=== PATIENT | male | born 1950 | race Caucasian/White ===

== ENCOUNTER 2017-04-21 19:24 | Inpatient (IN) | payer OTHER ==
[~2017-04-21] VITALS: Ht 172.7 cm; Wt 65.8 kg
[2017-04-21 19:24] VITALS: BP 128/66; PULSE 87; RESP 18; TEMP 99.1; O2SAT 100
--- NOTE | 2017-04-21 19:24 | NUR ---
Patient to ER bed 3 to gown for evaluation. Side rails up. Report given to Evan NEGRON.
--- NOTE | 2017-04-21 19:25 | NUR ---
Patient arrived to ED via BLS with c/o R sided nephrostomy tube dislodgement. Upon assessment tubing has become completely dislodged from site. Dressing still intact. No redness, swelling or drainage noted to site. Patient denies pain. No N/V/D. Denies fever. No other complaints at this time. Will continue to monitor.
--- NOTE | 2017-04-21 20:00 | NUR ---
Domenic villela in [facility] - 04/22/17 at 0140 by [email or web address] ED MD Peak at bedside for medical evaluation.
--- NOTE | 2017-04-21 20:00 | NUR ---
ED Peek at bedside with patient for reassessment.
[2017-04-21] MEDS ORDERED: TYLL650 PO (20:11)
[2017-04-21] MEDS ORDERED: LORA1TAB PO (20:24)
[2017-04-21] MEDS ORDERED: FERR-57 PO (20:24)
[2017-04-21] MEDS ORDERED: ACET-1010 PO (20:24)
[2017-04-21] MEDS ORDERED: CARB200T PO (20:24)
[2017-04-21] MEDS ORDERED: LOSA25TA3 PO (20:24)
[2017-04-21] MEDS ORDERED: ATEN50TA PO (20:24)
[2017-04-21] MEDS ORDERED: NOR10 PO (20:24)
[2017-04-21] MEDS ORDERED: SODI1TAB3 PO (20:24)
[2017-04-21] MEDS ORDERED: NA P133E41 RC (20:24)
[2017-04-21] MEDS ORDERED: MAGN400O4 PO (20:24)
[2017-04-21] MEDS ORDERED: TAMS0.4C96 PO (20:24)
[2017-04-21] MEDS ORDERED: BISA10SU65 RC (20:24)
[2017-04-21] MEDS ORDERED: PRED5TAB PO (20:24)
--- NOTE | 2017-04-21 20:30 | NUR ---
Patient offered bedside urinal per request. Unable to obtain any urine output at this time.
[2017-04-21 20:53] LABS: BASOPHILS % (AUTO) 0.2 % (0.0-2.0); EOSINOPHILS % (AUTO) 0.4 % (0.0-4.0); LYMPHOCYTES # (AUTO) 1.2 K/uL (1.0-5.5); LYMPHOCYTES % (AUTO) 19.8 % (20.5-51.5); MEAN CORPUSCULAR HEMOGLOBIN 26 pg (27-31); MEAN CORPUSCULAR HGB CONC 31 % (32-36); MEAN CORPUSCULAR VOLUME 84 fL (79.0-98.0); MONOCYTES # (AUTO) 0.4 K/uL (0.0-1.0); MONOCYTES % (AUTO) 6.6 % (1.7-9.3); NEUTROPHILS # (AUTO) 4.2 K/uL (1.8-7.7); PLATELET COUNT (AUTO) 551 K/uL (130-430); RED BLOOD CELL COUNT(AUTO) 2.74 MIL/uL (4.2-6.2); WHITE BLOOD COUNT (AUTO) 5.8 K/uL (4.8-10.8)
--- NOTE | 2017-04-21 21:00 | NUR ---
Laboratory at bedside.
[2017-04-21 21:02] LABS: CALCIUM 8.2 mg/dL (8.4-11.0); CREATININE 1.33 mg/dL (0.55-1.30); POTASSIUM 4.4 mmol/L (3.5-5.1)
[2017-04-21 21:04] LABS: HEMATOCRIT 23.1 % (36-54); HEMOGLOBIN 7.2 g/dL (14.0-18.0)
[2017-04-21 21:05] LABS: INR 1.1 (0.80-1.20); PROTHROMBIN TIME 12.3 SECS (9.5-12.5)
[2017-04-21 21:07] LABS: ALBUMIN 2.1 g/dL (3.4-4.8); TOTAL BILIRUBIN 0.2 mg/dL (0.0-1.0); TOTAL PROTEIN, SERUM 7.3 g/dL (6.4-8.3)
[2017-04-21 21:16] LABS: BILIRUBIN,URINE NEGATIVE (NEGATIVE); BLOOD, URINE 1+ (NEGATIVE); CLARITY/URINE CLOUDY (CLEAR); COLOR,URINE YELLOW (YELLOW); GLUCOSE,URINE NEGATIVE (NEGATIVE); KETONES,URINE NEGATIVE (NEGATIVE); LEUKOCYTE ESTERASE ,URINE 3+ (NEGATIVE); NITRITE, URINE NEGATIVE (NEGATIVE); PH,URINE 6.5 (5.0-8.0); PROTEIN URINE 2+ (NEGATIVE)
[2017-04-21 21:25] LABS: BACTERIA,URINE MANY /HPF (None Seen); WBC,URINE 50-80 /HPF (0-3)
[2017-04-21 21:26] LABS: COARSE GRANULAR CASTS,URINE 0-10 /LPF (None Seen); MUCUS,URINE None Seen /LPF (None Seen); URINE AMORPHOUS URATE 3+ /HPF (None Seen)
--- NOTE | 2017-04-21 21:30 | NUR ---
Patient resting quietly. No acute distress noted. Vital signs within normal range.
[2017-04-21] MEDS ORDERED: cefTRIAXone 1 GM IVPB PREMIX 50 ML IV ONE (21:45)
--- NOTE | 2017-04-21 22:10 | NUR ---
Patient will be admitted to care of Dr. Fernandez. Admitted to med/surg unit. Will go to room 135. Belongings list completed. Summary report printed. Report will be given at bedside. IV present no sign or symptom of infiltration.
--- NOTE | 2017-04-21 22:25 | NUR ---
ADMIT NOTE Received pt from ER to the floor with a diagnosis of UTI. Admission process initiated. patient oriented to pain management, safety and call light-teach back done.
[2017-04-21 22:29] VITALS: BP 115/65; PULSE 82; RESP 18; TEMP 98; O2SAT 100
--- NOTE | 2017-04-21 22:31 | NUR ---
Domenic villela in [facility] - 04/21/17 at 2232 by [email or web address] CONSULT CALLED EXCHANGE FOR DOCTOR LEORA CASTILLO-- SURGERY SPOKE WITH -- PIPER
--- NOTE | 2017-04-21 22:45 | NUR ---
NOTES: report given by nurse Ana Laura, pt. awake,alert , Wolof speaking pt. oriented to room, use of call light with POULTRY PROCESSING SUPERVISOR Brandi interpreting. denies any pain at this time. rt. nephrostomy tube out when checked., left nephrostomy tube still in place with dressing. picture taken on rt. nephrostomy tube site with small opening and also took on both lower extremities with some abrasion. skin on back pretty clear. IV lock on rt. antecubital. pt. being admitted for UTI. repositioned pt. and kept warm and comfortable.call light within reach.
[2017-04-21] MEDS ORDERED: MAGNESIUM SULFATE 50 ML IV PRN (23:00)
[2017-04-21] MEDS ORDERED: NACL 0.9% 1,000 ML IV SCH (23:00)
[2017-04-21] MEDS ORDERED: ZOLPIDEM TARTRATE 5 MG TABLET PO PRN (23:00)
[2017-04-21] MEDS ORDERED: POTASSIUM CHLORIDE 10 MEQ TAB.PRT.SR PO PRN (23:00)
[2017-04-21] MEDS ORDERED: ACETAMINOPHEN 325 MG TABLET PO PRN (23:00)
[2017-04-21] MEDS ORDERED: LORazepam 2 MG/ML VIAL IVP PRN (23:00)
[2017-04-21] MEDS ORDERED: ONDANSETRON HCL 4 MG/2 ML VIAL IVP PRN (23:00)
[2017-04-21] MEDS ORDERED: MILK OF MAGNESIA 30 ML UDC PO PRN (23:00)
[2017-04-21] MEDS ORDERED: DOCUSATE SODIUM 100 MG CAPSULE PO PRN (23:00)
[2017-04-21] MEDS ORDERED: ACETAMINOPHEN 500 MG TABLET PO PRN (23:00)
[2017-04-21] MEDS ORDERED: MORPHINE 2 MG/ML INJ. SYRINGE IVP PRN (23:00)
--- NOTE | 2017-04-21 23:34 | NUR ---
CONSULTATION PAGED REASON FOR CONSULTATION:nephrostomy tube malfunction WAS CONSULT CALLED?yes PERSON WHO WAS NOTIFIED:ulises CONSULTING PHYSICIAN: mirtha leyva HOME PLANNING CONSULTANT SALESPERSON SPECIALTY:urology HOME PLANNING CONSULTANT SALESPERSON PHONE NUMBER:[phone]
[2017-04-21 23:38] LABS: IRON (SERUM) 39 mcg/dL (59-158); TOTAL IRON BIND. CAPACITY 112 ug/dL (250-450)
[2017-04-22] VITALS (19 sets, daily range): BP systolic 52–131; BP diastolic 22–71; PULSE 71–108; RESP 15–30; TEMP 96.6–98.8; O2SAT 97–100
--- NOTE | 2017-04-22 00:30 | NUR ---
NOTES; pt. sleeping when made rounds. in no acute distress. continue to monitor.
--- NOTE | 2017-04-22 01:40 | NUR ---
NOTES: IVF of NS started @ 70 cc/hr via rt. antecubital site. pt. awakened , no complaints and went back to sleep.
--- NOTE | 2017-04-22 04:30 | NUR ---
ROUNDS: pt. sleeping when checked. condition observed, continue to monitor.
--- NOTE | 2017-04-22 06:00 | NUR ---
NOTES: pt. sleeping quietly. in no acute distress.
--- NOTE | 2017-04-22 06:45 | NUR ---
CLOSING NOTES: pt. checked still sleeping. IVF intact, left nephrostomy tube intact with yellowish urine output. denies any pain at this time. needs further care and assistance.
[2017-04-22 07:06] LABS: CALCIUM 8.2 mg/dL (8.4-11.0); CREATININE 1.36 mg/dL (0.55-1.30); POTASSIUM 4.1 mmol/L (3.5-5.1)
--- NOTE | 2017-04-22 07:45 | NUR ---
endorsed pt. to incoming shift with nurse Hernandez. left nephrostomy tube intact. IVF patent. for further care and assistance.
[2017-04-22 07:51] LABS: BASOPHILS % (AUTO) 0.3 % (0.0-2.0); EOSINOPHILS % (AUTO) 0.4 % (0.0-4.0); LYMPHOCYTES # (AUTO) 1.5 K/uL (1.0-5.5); LYMPHOCYTES % (AUTO) 23.6 % (20.5-51.5); MEAN CORPUSCULAR HEMOGLOBIN 26 pg (27-31); MEAN CORPUSCULAR HGB CONC 31 % (32-36); MEAN CORPUSCULAR VOLUME 85 fL (79.0-98.0); MONOCYTES # (AUTO) 0.6 K/uL (0.0-1.0); NEUTROPHILS # (AUTO) 4.3 K/uL (1.8-7.7); PLATELET COUNT (AUTO) 500 K/uL (130-430); RED BLOOD CELL COUNT(AUTO) 2.56 MIL/uL (4.2-6.2); RED CELL DISTRIBUTION WIDTH 19.1 % (9.0-15.0); WHITE BLOOD COUNT (AUTO) 6.4 K/uL (4.8-10.8)
[2017-04-22 07:54] LABS: HEMATOCRIT 21.8 % (36-54); HEMOGLOBIN 6.8 g/dL (14.0-18.0)
--- NOTE | 2017-04-22 08:00 | NUR ---
OPENING NOTE PT IS BEING TREATED FOR A UTI, AND HIS RIGHT NEPHROTOMY TUBE HAS BECOME DISLODGED. PT IS ALERT AND ORIENTED X 4 AND SPEAKS BENGALI WITH ONLY A BASIC UNDERSTANDING OF LATVIAN. HE IS AFEBRILE AND STATES IS COMFORTABLE AND WITHOUT PAIN.
--- NOTE | 2017-04-22 08:56 | NUR ---
Nutrition Update Josh Scale 13 noted. Pt admitted for UTI. Diet: cardiac BMI: 22 kg/m2 RD to follow per nutrition care standards.
[2017-04-22] MEDS ORDERED: HEPARIN SODIUM,PORCINE 5000 UNITS/ML VIAL SUBCUT SCH (09:00)
[2017-04-22] MEDS ORDERED: LOSARTAN POTASSIUM 25 MG TABLET PO SCH (09:00)
[2017-04-22] MEDS ORDERED: TAMSULOSIN HCL 0.4 MG CAP PO SCH (09:00)
[2017-04-22] MEDS ORDERED: DOCUSATE SODIUM 100 MG CAPSULE PO PRN (09:30)
[2017-04-22] MEDS ORDERED: ACETAMINOPHEN 325 MG TABLET PO PRN (09:30)
[2017-04-22] MEDS ORDERED: POTASSIUM CHLORIDE 10 MEQ TAB.PRT.SR PO PRN (09:30)
[2017-04-22] MEDS ORDERED: LORazepam 2 MG/ML VIAL IVP PRN (09:30)
[2017-04-22] MEDS ORDERED: MORPHINE 2 MG/ML INJ. SYRINGE IVP PRN (09:30)
[2017-04-22] MEDS ORDERED: ZOLPIDEM TARTRATE 5 MG TABLET PO PRN (09:30)
[2017-04-22] MEDS ORDERED: MAGNESIUM SULFATE 50 ML IV PRN (09:30)
[2017-04-22] MEDS ORDERED: ONDANSETRON HCL 4 MG/2 ML VIAL IVP PRN (09:30)
[2017-04-22 09:40] LABS: NEUTROPHILS % (AUTO) 66.7 % (40.0-70.0)
--- NOTE | 2017-04-22 10:00 | NUR ---
ROUNDS/CONSENT FOR BLOOD SIGNED PT IS SITTING UP IN BED AND STATES HE IS COMFORTABLE. PT SON IS AT BEDSIDE. MIGDALIA CASTRO FROM [facility] JOINED US TO TRANSLATE REGARDING THE CONSENT FOR BLOOD TRANSFUSION FORM, WHICH THE PT SIGNED.
[2017-04-22] MEDS: ATENOLOL 50 MG TABLET (TENORMIN) PO SCH (10:58)
[2017-04-22] MEDS: amLODIPine BESYLATE 10 MG TABLET PO SCH (10:59)
[2017-04-22] MEDS: FERROUS SULFATE 325 MG TABLET.DR PO SCH ×2 (10:59→21:00)
--- NOTE | 2017-04-22 12:00 | NUR ---
ROUNDS PT IS RESTING IN BED AND APPEARS TO BE COMFORTABLE. PT FAMILY IS AT BEDSIDE/ PREPARING PT FOR BLOOD TRANSFUSION
--- NOTE | 2017-04-22 13:35 | NUR ---
BT INITIATION: Consent signed by pt agreeing to administration of blood. Blood has been type and crossmatched. Blood sent from blood bank. Information on unit of blood checked against patient wristband at bedside by two nurses. All information matches. Patient and his son informed of potential complications associated with blood transfusion. Informed of possible transfusion reaction symptoms. Aware of need to notify nurse at once of itching, shortness of breath, flushing, feeling of impending doom, or other symptoms not previously present. Vital signs taken within 5 minutes prior to initiation of transfusion. RN will remain with patient for first 15 minutes of transfusion at which time vital signs will be re-assessed.
--- NOTE | 2017-04-22 13:53 | NUR ---
BT 15-MIN FOLLOW UP I REMAINED AT BEDSIDE DURING THE FIRST 15 MINUTES OF THE TRANSFUSION. PT VS ARE STABLE WITH NO S/S OF TRANSFUSION REACTION. WILL CONTINUE TO MONITOR DURING THE COURSE OF THE TRANSFUSION
--- NOTE | 2017-04-22 14:30 | NUR ---
PT TRANSFERRED TO GI LAB FOR PROCEDURE, BLOOD STILL CONFUSING, MIGDALIA LITTLE ACCOMPANIED PT
[2017-04-22] MEDS ORDERED: fentaNYL CITRATE/PF 100 MCG/2 ML AMP ONE (14:34)
[2017-04-22] MEDS ORDERED: MIDAZOLAM HCL 5 MG/5 ML VIAL ONE (14:36)
--- NOTE | 2017-04-22 17:25 | NUR ---
ATTENDING MD DR BURGER CALLED, DR ALONSO HOUSE CARPENTER, RE: HYPOTENSION. SPOKE TO DR JONES DIRECTLY
--- NOTE | 2017-04-22 17:30 | NUR ---
DR LOPEZ CALLED BACK, GAVE MD BACKGROUND PF THE SITUATION INFORMED HIM THAT PATIENT IS POST PROCEDURE, WITH HYPOTENSION AT THIS TIME. VITALS HAD REMAINED STEADY THROUGH OUT THE PROCEDURE. PATIENT CONTINUES TO BE ALERT X2 , ANSWERS TO SIMPLE COMMANDS. BP 60/37 HR 95, O2 SATURATION 100% ON 2L OF OXYGEN. RECEIVED ORDERS TO BOLUS NS AT 1L STAT. HOLD ALL BP LOWERING MEDICATION. CONSULT DR COREY FOR A CENTRAL LINE. CAN ALSO BE PICC LINE IF WE CAN GET IT. TRANSFER TO ICU STAT.
--- NOTE | 2017-04-22 17:30 | NUR ---
PT RETURNED FROM PROCEDURE, VS UNSTABLE AND BLOOD PRESSURE LOW AT A CRITICAL LEVEL. CHARGE NURSE AGREED SITUATION CRITICAL AND THAT PT SHOULD BE TRANSFERRED TO ICU PT FAMILY CONTACTED AND UPDATED OF SITUATION
--- NOTE | 2017-04-22 17:40 | NUR ---
TRANSFERED TO ICU ROOM 3
--- NOTE | 2017-04-22 17:45 | NUR ---
RN NOTES: TRANSFER TO ICU PATIENT TRANSFERRED TO ICU DUE HYPOTENSION S/P RIGHT NEPHROSTOMY TUBE PLACEMENT. PLACED COMFORTABLY ON BED, VITALS CHECKED AND RECORDED, SCOPE SHOWS SINUS RHYTHM. PATIENT IS AWAKE AND RESPONSIVE, DENIES ANY PAIN. WITH NORMAL SALINE BOLUS INFUSING, 2ND OF 2 UNITS PRBC TRANSFUSION GOING ON. RIGHT NEPHROSTOMY TUBE PATENT, WITH BLOOD TINGED DRAINAGE NOTED. WILL CONTINUE TO CLOSELY MONITOR PATIENT.
[2017-04-22] MEDS ORDERED: NACL 0.9% 1,000 ML IV ONE (18:15)
--- NOTE | 2017-04-22 18:15 | NUR ---
MD CONSULT: DR. DEVAUGHN CANTOR HERE TO SEE PATIENT, WITH ORDERS CARRIED OUT.
--- NOTE | 2017-04-22 18:45 | NUR ---
RN NOTES IV FLUID BOLUS STILL INFUSING, BP -62/28, LEVOPHED DRIP STARTED AT 5MCG.
[2017-04-22] MEDS ORDERED: NOREPINEPHRINE 4 MG/4 ML VIAL IV ONE ×2 (18:50→22:17)
[2017-04-22] MEDS ORDERED: SODIUM BICARBONATE 8.4% VIAL 50 MEQ/50 ML VIAL INJ ONE (19:00)
[2017-04-22] MEDS: CEFEPIME 1 GM in D5W 50 ML IV SCH ×2 (19:00→21:00)
[2017-04-22 19:08] LABS: BLOOD GAS PH 7.497 (7.350-7.450)
[2017-04-22 19:09] LABS: ABG TOTAL HEMOGLOBIN 8.1 G/dL (12.0-18.0); BLOOD GAS BASE EXCESS -6.7 mmol/L (-3.0-3.0); BLOOD GAS COHb% 0.7 % (0.5-1.5); BLOOD GAS HHB 1.9 % (0.0-6.0); BLOOD O2Hb% 97.2 % (94.0-97.0)
[2017-04-22] MEDS ORDERED: NS 250 ML IV ONE (19:30)
--- NOTE | 2017-04-22 19:57 | NUR ---
DNR PALLATIVE CARE CODE Family requested to stop all medications and just keep pain medications. Called Dr. Sandoval regarding the request. ordered DNR pallative care. Addendum: 04/23/17 at 2135 by Martinez Santamaria RN Correction Date corrected to be 04/23/17 instead of 04/22/17
--- NOTE | 2017-04-22 20:00 | NUR ---
LEVOPHED DRIP infusing @ 30 mcg / minute BP 61 / 28 , patient is awake family at the the bedside .
--- NOTE | 2017-04-22 20:15 | NUR ---
DR DEVAUGHN Moser. here to see patient @ the bedside New orders obtained .
--- NOTE | 2017-04-22 20:15 | NUR ---
TIME OF Dr. Carvalho came in to see the pt. confirmed time of at 2015. Addendum: 04/23/17 at 2137 by Martinez Santamaria RN Correction Date corrected to 04/23/17 instead of 04/22/17
[2017-04-22] MEDS ORDERED: SODIUM BICARBONATE 8.4% JECT 50 MEQ/50 ML SYRINGE ONE ×2 (21:07→21:16)
[2017-04-22] MEDS: SODIUM BICARBONATE 8.4% JECT 50 MEQ in 0.45% NACL 1,000 ML IV SCH ×2 (21:14→21:24)
[2017-04-22] MEDS: HYDROCORTISONE SOD SUCC 100 MG/2 ML VIAL IVP SCH (21:29)
[2017-04-22] MEDS ORDERED: cefTRIAXone 1 GM in D5W 50 ML IV SCH (22:00)
--- NOTE | 2017-04-22 22:00 | NUR ---
SODIUM BICARBONATE 50 ML IVP administer as ordered .
[2017-04-22] MEDS ORDERED: CEFEPIME 1 GM/VIAL (MAXIPIME) ONE (22:21)
[2017-04-22 22:49] LABS: HEMATOCRIT 25.4 % (36-54); HEMOGLOBIN 8.3 g/dL (14.0-18.0)
--- NOTE | 2017-04-22 23:32 | NUR ---
CEFEPIME 1 GM IVPB ADMINISTER as ordered , patient awake no allergic reaction noted family @ the bedside .
[2017-04-23] VITALS (20 sets, daily range): BP systolic 85–126; BP diastolic 40–98; PULSE 68–113; RESP 19–31; TEMP 97.5–99.4; O2SAT 97–100
[2017-04-23] MEDS ORDERED: NOREPINEPHRINE 4 MG/4 ML VIAL IV ONE ×3 (00:35→05:36)
--- NOTE | 2017-04-23 01:15 | NUR ---
DR CANTOR has been called , New orders DOPAMINE , for BP control , STAT LABS & ABG has been drawn as ordered per .
[2017-04-23] MEDS ORDERED: DOPamine PREMIX 250 ML IV PRN (01:30)
[2017-04-23] MEDS ORDERED: DOPamine PREMIX 250 ML IV ONE (01:50)
[2017-04-23 01:52] LABS: BLOOD GAS PH 7.473 (7.350-7.450)
[2017-04-23 01:54] LABS: ABG TOTAL HEMOGLOBIN 8.6 G/dL (12.0-18.0)
[2017-04-23 01:54] LABS: BASOPHILS % (AUTO) 0.1 % (0.0-2.0); EOSINOPHILS % (AUTO) 0.2 % (0.0-4.0); HEMATOCRIT 24.5 % (36-54); HEMOGLOBIN 7.8 g/dL (14.0-18.0); LYMPHOCYTES # (AUTO) 0.5 K/uL (1.0-5.5); MEAN CORPUSCULAR HEMOGLOBIN 27 pg (27-31); MEAN CORPUSCULAR HGB CONC 32 % (32-36); MEAN CORPUSCULAR VOLUME 83 fL (79.0-98.0); MONOCYTES % (AUTO) 0.4 % (1.7-9.3); NEUTROPHILS # (AUTO) 6.2 K/uL (1.8-7.7); NEUTROPHILS % (AUTO) 92.3 % (40.0-70.0); PLATELET COUNT (AUTO) 263 K/uL (130-430); RED BLOOD CELL COUNT(AUTO) 2.94 MIL/uL (4.2-6.2); RED CELL DISTRIBUTION WIDTH 17.9 % (9.0-15.0); WHITE BLOOD COUNT (AUTO) 6.7 K/uL (4.8-10.8)
[2017-04-23 01:55] LABS: BLOOD GAS COHb% 0.3 % (0.5-1.5); BLOOD GAS HHB 7.2 % (0.0-6.0)
--- NOTE | 2017-04-23 02:13 | NUR ---
DOPAMINE 5MCG / MINUTE infusing , BP 116/53 , patient awake alert verbally responsive family @ the bedside .
[2017-04-23 02:20] LABS: CALCIUM 7.4 mg/dL (8.4-11.0); CREATININE 1.9 mg/dL (0.55-1.30); POTASSIUM 4.5 mmol/L (3.5-5.1)
[2017-04-23 02:25] LABS: ALBUMIN 1.2 g/dL (3.4-4.8); TOTAL BILIRUBIN 2.7 mg/dL (0.0-1.0); TOTAL PROTEIN, SERUM 4.6 g/dL (6.4-8.3)
--- NOTE | 2017-04-23 02:47 | NUR ---
DR. CANTOR: Dr. Cantor called back and notified her of the results of ABGs, CBC and CMP. Dr. Cantor ordered for Sodium Bicarbonate and 1 unit of PRBC. Order noted and carried out.
[2017-04-23] MEDS ORDERED: SODIUM BICARBONATE 8.4% JECT 50 MEQ/50 ML SYRINGE IVP ONE (03:00)
[2017-04-23] MEDS ORDERED: NOREPINEPHRINE BITARTRATE 4 MG in D5W 246 ML IV PRN (03:15)
--- NOTE | 2017-04-23 03:41 | NUR ---
SODIUM BICARBONATE 8.4% 50 ML IVP administer as ordered , patient is awake alert this hour , family @ the bedside .
[2017-04-23] MEDS ORDERED: NS 250 ML IV ONE (05:45)
[2017-04-23] MEDS ORDERED: VANCOMYCIN HCL 1 GM/NS PREMIX 250 ML IV ONE (06:00)
[2017-04-23] MEDS ORDERED: HALOPERIDOL LACTATE 5 MG/ML VIAL IVP PRN (06:00)
--- NOTE | 2017-04-23 06:00 | NUR ---
MD VISIT: Dr. Campuzano came and examined patient. Per Dr. Campuzano, to infuse blood wide open. Blood pressure 67/44. Son at bedside.
[2017-04-23] MEDS: HYDROCORTISONE SOD SUCC 100 MG/2 ML VIAL IVP SCH ×2 (06:01→14:17)
[2017-04-23] MEDS ORDERED: VANCOMYCIN HCL 1000 MG/VIAL IV ONE (06:14)
[2017-04-23 06:52] LABS: CALCIUM 7.5 mg/dL (8.4-11.0); CREATININE 1.81 mg/dL (0.55-1.30)
--- NOTE | 2017-04-23 06:55 | NUR ---
PRBC THIRD UNIT INFUSING , PATIENT TOLERATING .
--- NOTE | 2017-04-23 06:56 | NUR ---
PHONED PAGED DR BURGER D/T POSITIVE B/C GRAM POSITIVE CLUSTERS .
--- NOTE | 2017-04-23 07:30 | NUR ---
Received pt alert and interacting with pts son who is at bedside. 02 4L NC in use. Lungs sound clear bilaterally . Pt slightly SOB and resp shallow. RR 26. BP maintained on Dopamine at 20 mcgs and Levophed at [address] on monitor rate 110. IVF infusing at 80 cc.hr via left Subclavian TLC. Pt kept NPO at this time for safety. Skin juandiced all over. Pt has a right nephrostomy tube connected to a TONG drain and unable to get bulb to stay compressed to drain blood. Pt has a left nephrostomy tube with a small amt of lai urine in collection bag. Both tubes taped securely to side of abd. Will continue to monitor pt. Family at bedside.
--- NOTE | 2017-04-23 07:30 | NUR ---
ASSUMPTION OF CARE RECEIVED BEDSIDE REPORT FROM MIGDALIA MELENDEZ. PT IN BED AWAKE. PT'S SON, RONN AT BEDSIDE. BP 95/54, HR 106, SPO2 99% ON 4 L NC. NO SIGNS OF DISTRESS OR AGITATION NOTED AT THIS TIME. LEVOPHED @ 30 MCG/MIN, DOPAMINE @ 20 MCG/KG/MIN, SODIUM BICARB IN 1/2 NS @ 80ML/HR. WILL CONTINUE TO MONITOR PT.
[2017-04-23 07:59] LABS: MEAN CORPUSCULAR HEMOGLOBIN 27 pg (27-31); WHITE BLOOD COUNT (AUTO) 4.2 K/uL (4.8-10.8)
[2017-04-23] MEDS ORDERED: NOREPINEPHRINE BITARTRATE 8 MG in NS 242 ML IV PRN (08:00)
[2017-04-23 08:04] LABS: HEMATOCRIT 33.8 % (36-54); HEMOGLOBIN 10.9 g/dL (14.0-18.0); MEAN CORPUSCULAR HGB CONC 32 % (32-36); MEAN CORPUSCULAR VOLUME 84 fL (79.0-98.0); PLATELET COUNT (AUTO) 202 K/uL (130-430); RED BLOOD CELL COUNT(AUTO) 4.05 MIL/uL (4.2-6.2); RED CELL DISTRIBUTION WIDTH 16.3 % (9.0-15.0)
[2017-04-23] MEDS: ATENOLOL 50 MG TABLET (TENORMIN) PO SCH (09:00)
[2017-04-23] MEDS: amLODIPine BESYLATE 10 MG TABLET PO SCH (09:00)
[2017-04-23 09:19] LABS: ATYPICAL LYMPHOCYTES % 0 % (0-0); BAND % (MANUAL) 6 % (0-6); BASOPHILS % (MANUAL) 0 % (0-2); EOSINOPHILS % (MANUAL) 0 % (0-7); LYMPHOCYTES % (MANUAL) 4 % (20-46); MONOCYTES % (MANUAL) 2 % (0-11)
[2017-04-23] MEDS: CEFEPIME 1 GM in D5W 50 ML IV SCH (09:19)
--- NOTE | 2017-04-23 09:32 | NUR ---
HALDOL 1 MG IV HALDOL GIVEN FOR AGITATION. VITAL SIGNS: BP 92/37, HR 108, SPO2 100% ON 4 L NC, RESPIRATIONS 22. WILL CONTINUE TO MONITOR PT FOR RESPONSE TO HALDOL.
--- NOTE | 2017-04-23 09:55 | NUR ---
NG INSERTION NG TUBE PLACEMENT: # 16 FR NG tube placed to LEFT nare. Placement checked by auscultation of instilled air into stomach and aspiration of gastric contents. Tubing taped in place to prevent dislodging. Patient tolerated WITHOUT OBSERVED PAIN OR DIFFICULTY.
--- NOTE | 2017-04-23 10:00 | NUR ---
HALDOL PT STILL APPEARS RESTLESS AND AGITATED. VITALS FOLLOWS: BP 95/52, HR 108, RESPIRATIONS 27, SPO2 100% ON 4 L NC.
[2017-04-23] MEDS: FERROUS SULFATE 325 MG TABLET.DR PO SCH (10:01)
--- NOTE | 2017-04-23 10:20 | NUR ---
consult for dr. alejandre (dr. muñiz applications scientist) called spoke to ronnie dialed [phone]
--- NOTE | 2017-04-23 10:24 | NUR ---
RESTRAINTS BILAT SOFT WRIST RESTRAINTS ORDERED BY DR LOPEZ AND APPLIED TO PT. PT REMOVING NASAL CANNULA AND ATTEMPTING TO REMOVE NG TUBE AND NEPH TUBE. WILL CONTINUE TO MONITOR PT FOR FURTHER NEED OF RESTRAINTS.
[2017-04-23] MEDS: SODIUM BICARBONATE 8.4% JECT 50 MEQ in 0.45% NACL 1,000 ML IV SCH (11:05)
[2017-04-23] MEDS ORDERED: DIATR MEGLU/DIATRIZ SOD 30 ML SOLUTION PO ONE (11:11)
[2017-04-23] MEDS ORDERED: COMMUNICATION ORDER XX ONE ×2 (11:15→18:45)
[2017-04-23 11:36] LABS: FOLATE (FOLIC ACID) 4.5 ng/mL (>3.0)
--- NOTE | 2017-04-23 12:00 | NUR ---
RESTRAINTS BILAT SOFT WRIST RESTRAINTS REMOVED FROM PT. PT'S DAUGHTER IS AT BEDSIDE AND IS COMFORTING PT. PT SEEMS LESS AGITATED AND IS NOT TRYING TO REMOVE EQUIPMENT AT THIS TIME. WILL CONTINUE TO MONITOR FOR FURTHER NEED FOR RESTRAINTS.
--- NOTE | 2017-04-23 13:30 | NUR ---
Dr Sandoval made aware of CT abd/pelvis results, no urine output to left nephrostomy and blood in the right one. Orders left for fluids and NS 1L started. in to see pt. No orders left.
[2017-04-23] MEDS ORDERED: NACL 0.9% 1,000 ML IV ONE ×2 (13:45→18:15)
--- NOTE | 2017-04-23 13:56 | NUR ---
Emotional support given to family at bedside. They would like further testing to be stopped and to "let nature take its course".
--- NOTE | 2017-04-23 14:00 | NUR ---
NS BOLUS 1000 ML NORMAL SALINE IV BOLUS INITIATED ORDERED BY DR LOPEZ. WILL CONTINUE TO MONITOR PT'S BLOOD PRESSURE AND URINE OUTPUT.
[2017-04-23 14:01] LABS: LYMPHOCYTES # (AUTO) 0.4 K/uL (1.0-5.5); MONOCYTES # (AUTO) 0.1 K/uL (0.0-1.0); RED CELL DISTRIBUTION WIDTH 16.4 % (9.0-15.0)
[2017-04-23 14:05] LABS: BASOPHILS % (AUTO) 0.2 % (0.0-2.0); EOSINOPHILS % (AUTO) 0.4 % (0.0-4.0); HEMATOCRIT 33.1 % (36-54); LYMPHOCYTES % (AUTO) 6.7 % (20.5-51.5); MEAN CORPUSCULAR HEMOGLOBIN 28 pg (27-31); MEAN CORPUSCULAR HGB CONC 33 % (32-36); MEAN CORPUSCULAR VOLUME 84 fL (79.0-98.0); MONOCYTES % (AUTO) 2.3 % (1.7-9.3); NEUTROPHILS # (AUTO) 4.9 K/uL (1.8-7.7); NEUTROPHILS % (AUTO) 90.4 % (40.0-70.0); PLATELET COUNT (AUTO) 153 K/uL (130-430); RED BLOOD CELL COUNT(AUTO) 3.93 MIL/uL (4.2-6.2); WHITE BLOOD COUNT (AUTO) 5.4 K/uL (4.8-10.8)
--- NOTE | 2017-04-23 15:27 | NUR ---
ASSESSMENT PT AWAKE IN BED BUT IS LESS ALERT THAN HE WAS THIS MORNING. FAMILY AT BEDSIDE TO COMFORT PT. O2 SAT 100% ON 4 L NC. BP 104/59 WITH LEVOPHED @ 30 MCG/MIN AND DOPAMINE @ 20 MCG/KG/MIN. 1000 ML NS BOLUS IS COMPLETE. NO SIGNS OF DISTRESS OR AGITATION NOTED AT THIS TIME. WILL CONTINUE TO MONITOR. Addendum: 04/23/17 at 1559 by Subha Granados RN THERE IS STILL NO URINE OUTPUT FROM THE LEFT NEPH TUBE AT THIS POINT.
--- NOTE | 2017-04-23 16:28 | NUR ---
LEVOPHED/DOPAMINE NOT SCANNING PLACED CALL TO PHARMACY ABOUT LEVOPHED AND DOPAMINE DRIPS HAVING BARCODES THAT WILL NOT SCAN IN EMAR. NOTIFIED PHARMACIST AND HE SAID TO KEEP GIVING THE MEDICATIONS AND MANUALLY ENTERING THE ADMINISTRATION IN EMAR.
--- NOTE | 2017-04-23 18:15 | NUR ---
CALL TO PHYSICIAN SPOKE TO DR LOPEZ ON PHONE REGARDING PT'S CURRENT STATUS AND DECLINING BP: SBP IN 80s. NEW ORDERS RECEIVED.
--- NOTE | 2017-04-23 18:24 | NUR ---
SPOKE TO FAMILY REGARDING NEW ORDERS FOR BREATHING TREATMENTS, O2 SUPPLEMENTATION, AND RT EVALUATION OF PT FOR POSSIBLE NEED OF BIPAP. FAMILY DECLINES ALL OF THE STATED ORDERS. MADE CALL TO RT TO INFORM THEM OF THE FAMILY'S DECISION.
[2017-04-23] MEDS ORDERED: LEVALBUTEROL HCL 0.63 MG/3 ML VIAL.NEB INH SCH (19:00)
--- NOTE | 2017-04-23 19:19 | NUR ---
ENDORSEMENT OF CARE BEDSIDE REPORT GIVEN TO MIGDALIA CLARK AND MIGDALIA GLOVER USING SBAR APPROACH.
--- NOTE | 2017-04-23 20:00 | NUR ---
EVENT Family at bedside. After order entered of DNR pallative care. Stopped all medications, turned off IV drips. Pts's HR decreased and became asystole. BP wasnt able to obtain, respirations also decreased. Called ER MD Dr. Carvalho to pronounce time of .
--- NOTE | 2017-04-23 20:30 | NUR ---
[facility], infromed them about the pt's case. Case number given [id number].
--- NOTE | 2017-04-23 20:43 | NUR ---
CALLED Notified Dr. Sandoval of pt's time of .
--- NOTE | 2017-04-23 20:45 | NUR ---
Loading Machine Adjuster Called undercollar makerRachell, verified its not a coroners case.
--- NOTE | 2017-04-23 21:05 | NUR ---
[facility] Called mortuary, mushroom picker time verified.
--- NOTE | 2017-04-23 23:35 | NUR ---
[employer] Reps from [facility] arrived @ 2335, to asbestos pipe supervisor , out by 2340. Family @ bedside.
[2017-04-24] MEDS ORDERED: VANCOMYCIN HCL 1,000 MG in NS 250 ML IV SCH (06:00)
[2017-04-25 10:48] LABS: BLOOD O2Hb% 92.2 % (94.0-97.0)
== END 2017-04-23 23:08 | disposition expired | DRG 698 ==
LOC: SED 19:24 → SMU 22:02 → SIC 04-22 17:40
PROVIDERS: ADMIT General Practice; ATTEND General Practice
PROC: 02HV33Z Insertion of Infusion Device into Superior Vena Cava, Percutaneous Approach (ICD-10-PCS; principal; 2017-04-22)
PROC: B548ZZA Ultrasonography of Superior Vena Cava, Guidance (ICD-10-PCS; 2017-04-22)
PROC: 0T9030Z Drainage of Right Kidney with Drainage Device, Percutaneous Approach (ICD-10-PCS; 2017-04-22)
PROC: 30233N1 Transfusion of Nonautologous Red Blood Cells into Peripheral Vein, Percutaneous Approach (ICD-10-PCS; 2017-04-22)
DX: N99.522 Malfunction of incontinent external stoma of urinary tract (principal); N17.0 Acute kidney failure with tubular necrosis; E44.0 Moderate protein-calorie malnutrition; N39.0 Urinary tract infection, site not specified; E87.2 Acidosis; Z51.5 Encounter for palliative care; I95.9 Hypotension, unspecified; N13.9 Obstructive and reflux uropathy, unspecified; Z66 Do not resuscitate; D50.9 Iron deficiency anemia, unspecified; G40.909 Epilepsy, unspecified, not intractable, without status epilepticus; I10 Essential (primary) hypertension; Z85.46 Personal history of malignant neoplasm of prostate; Z85.841 Personal history of malignant neoplasm of brain; Z90.79 Acquired absence of other genital organ(s); Z87.891 Personal history of nicotine dependence; Z74.01 Bed confinement status; Z79.899 Other long term (current) drug therapy; Z68.22 Body mass index [BMI] 22.0-22.9, adult
CPT/HCPCS: 36415; 36600; 71010; 74150-TC; 74475-TC; 80048; 80053; 81000-TC; 82607; 82728; 82746; 82803-TC; 83540-TC; 83550-TC; 83605; 83735-TC; 85007; 85018-TC; 85025; 85027; 85610-TC; 85730-TC; 86886; 86900; 86901; 86920; 87040-TC; 87081; 87086; 87186-TC; 93005; 96365; 99285; C1729; C1751; C1769; J0692; J0696; J1265; J1630; J1720; J2250; J2270; J3010; J3370; J7030; J7040; J7050; J7060; P9021; Q9964